=== PATIENT | female | born 1990 | race Caucasian/White ===

== ENCOUNTER 2022-01-27 14:07 | Emergency (ER) | payer BC, OTHER ==
[~2022-01-27] VITALS: Ht 160 cm; Wt 72.7 kg
[~2022-01-27 14:07] MED LIST: AUGM875T27 PO; DEPA250T2 PO; KEPP1000 PO; KEPP500T4 PO; NICO21DI3 EXT; SERT-141 PO; TOPA100T PO
[2022-01-27 14:08] VITALS: BP 103/68
[2022-01-27 16:13] LABS: GC DNA AMPLIFICATION POSITIVE (NEGATIVE)
[2022-01-27] MEDS ORDERED: cefTRIAXone 500MG VIAL (J0696 PER 250MG) IM ONE (16:40)
[2022-01-27] MEDS ORDERED: LIDOCAINE 1% SDV 5ML VIAL DILUENT ONE (16:40)
== END 2022-01-27 17:10 | disposition home or self-care (01) ==
LOC: M ED 14:07
DX: A54.02 Gonococcal vulvovaginitis, unspecified (principal); Z79.899 Other long term (current) drug therapy
CPT/HCPCS: 87661; 87810; 87850; 96372; 99282; J0696

== ENCOUNTER 2022-02-11 18:02 | Emergency (ER) | payer OTHER ==
[~2022-02-11] VITALS: Ht 160 cm; Wt 74.0 kg
[2022-02-11] MEDS ORDERED: SERT150C (18:36)
[2022-02-11] MEDS ORDERED: OXCA300T14 (18:36)
[2022-02-11] MEDS ORDERED: CLOB20TA13 (18:36)
[2022-02-11] MEDS ORDERED: DIFL150T PO (19:36)
[2022-02-11] MEDS ORDERED: BACT800T5 PO (19:36)
[2022-02-11 19:47] VITALS: BP 119/56
== END 2022-02-11 19:48 | disposition home or self-care (01) ==
LOC: M ED 18:02
DX: S50.861A Insect bite (nonvenomous) of right forearm, initial encounter (principal); W57.XXXA Bitten or stung by nonvenomous insect and other nonvenomous arthropods, initial encounter; Y92.89 Other specified places as the place of occurrence of the external cause; B37.3 Candidiasis of vulva and vagina; F33.9 Major depressive disorder, recurrent, unspecified; Z79.899 Other long term (current) drug therapy; F17.200 Nicotine dependence, unspecified, uncomplicated

== ENCOUNTER 2022-03-21 23:38 | Emergency (ER) | payer OTHER ==
[~2022-03-21] VITALS: Ht 160 cm; Wt 54.5 kg
[~2022-03-21 23:38] MED LIST changes: +BACT800T5 PO; +CLOB20TA13; +DIFL150T PO; +OXCA300T14; +SERT150C
[2022-03-21 23:54] VITALS: BP 106/73
== END 2022-03-22 03:16 | disposition left against medical advice (07) ==
LOC: M ED 23:38 → EDBD 23:38 → M ED 03-22 03:16
DX: Z53.29 Procedure and treatment not carried out because of patient's decision for other reasons (principal)

== ENCOUNTER 2022-04-02 11:17 | Emergency (ER) | payer OTHER ==
[~2022-04-02] VITALS: Ht 160 cm; Wt 69.0 kg
[2022-04-02] MEDS ORDERED: OXcarbazepine 300 MG TAB PO STA ×2 (12:01→16:31)
[2022-04-02] MEDS ORDERED: MIDAZOLAM INJ 2MG/2ML VIAL (J2250 PER 1MG) As Ordered ONE (12:50)
[2022-04-02] MEDS ORDERED: MIDAZOLAM INJ 2MG/2ML VIAL (J2250 PER 1MG) IV STA (12:55)
[2022-04-02 16:41] VITALS: BP 116/56
[2022-04-02] MEDS ORDERED: OXcarbazepine 150 MG TAB PO STA (16:49)
[2022-04-08 14:08] LABS: CLOBAZAM 14 ng/mL (30-300); DESMETHYLCLOBAZAM 8667 ng/mL (300-3000)
== END 2022-04-02 16:50 | disposition home or self-care (01) ==
LOC: M ED 11:17 → EDBD 11:17 → M ED 16:50
DX: G40.909 Epilepsy, unspecified, not intractable, without status epilepticus (principal); S00.81XA Abrasion of other part of head, initial encounter; X58.XXXA Exposure to other specified factors, initial encounter; F31.9 Bipolar disorder, unspecified; F17.200 Nicotine dependence, unspecified, uncomplicated; Z79.899 Other long term (current) drug therapy; Z98.890 Other specified postprocedural states
CPT/HCPCS: 70450; 80047; 80183; 84702; 96374; 99285; G0480; J2250

== ENCOUNTER 2022-05-02 10:04 | Observation (INO) | payer OTHER ==
[2022-05-02 12:30] LABS: VENOUS BASE EXCESS -4.5 (-2.0-2.0); VENOUS HCO3 21.7 MEQ/L (23.0-27.0); VENOUS O2 SATURATION 80.3 % (60.0-80.0); VENOUS PARTIAL PRESSURE O2 47.1 mmHg (30.0-50.0); VENOUS PH 7.311 UNITS (7.330-7.430); VENOUS STANDARD HCO3 20.4 MEQ/L; VENOUS TOTAL CO2 23.1 MEQ/L (24.0-28.0)
[2022-05-02 12:39] LABS: BASO % 0.5 % (0.0-1.0); EOS # 0.1 10^3/uL (0.0-0.5); EOS % 1.4 % (0.0-3.0); HEMATOCRIT 39.8 % (36.0-47.0); HEMOGLOBIN 12.8 g/dl (12.0-15.5); LYMPH # 1.6 10^3/uL (1.5-5.0); LYMPH % 26.7 % (24.0-44.0); MEAN CORPUSCULAR HEMOGLOBIN 29.4 pg (27.0-33.0); MEAN CORPUSCULAR HGB CONC 32.2 g/dl (32.0-36.5); MEAN CORPUSCULAR VOLUME 91.3 fl (80.0-96.0); MONO # 0.4 10^3/uL (0.0-0.8); MONO % 6.9 % (2.0-8.0); NEUTROPHILS # 3.7 10^3/uL (1.5-8.5); NEUTROPHILS % 64.3 % (36.0-66.0); PLATELET COUNT, AUTOMATED 228 10^3/uL (150-450); RED BLOOD COUNT 4.36 10^6/uL (4.00-5.40); WHITE BLOOD COUNT 5.8 10^3/uL (4.0-10.0)
[2022-05-02 12:57] LABS: OSMOLALITY SERUM 286 MOSM/KG (275-295)
[2022-05-02] MEDS ORDERED: LIDOCAINE 2% 5ML JELLY UROJET TOP ONE (13:15)
[2022-05-02 13:25] LABS: ALT/SGPT 19 U/L (12-78); BILIRUBIN,DIRECT 0.2 MG/DL (0.0-0.2); BILIRUBIN,TOTAL 0.4 MG/DL (0.2-1.0); BLOOD UREA NITROGEN 10 MG/DL (7-18); CALCIUM LEVEL 9.2 MG/DL (8.5-10.1); CARBON DIOXIDE LEVEL 25 MEQ/L (21-32); CHLORIDE LEVEL 104 MEQ/L (98-107); CREATININE FOR GFR 0.48 MG/DL (0.55-1.30); GLOMERULAR FILTRATION RATE > 60.0 (>60); GLUCOSE, FASTING 82 MG/DL (70-100); SALICYLATE LEVEL 2.8 MG/DL (5.0-30.0); SODIUM LEVEL 135 MEQ/L (136-145); TOTAL PROTEIN 7.3 GM/DL (6.4-8.2)
[2022-05-02 13:26] LABS: ACETAMINOPHEN LEVEL < 2.0 UG/ML (10.0-30.0); ETHYL ALCOHOL (ETHANOL) < 0.003 % (0.000-0.010)
[2022-05-02 14:10] LABS: AMPHETAMINES LEVEL URINE POSITIVE (NEGATIVE); BARBITURATES URINE NEGATIVE (NEGATIVE); BENZODIAZEPINES URINE POSITIVE (NEGATIVE); CANNABINOIDS URINE POSITIVE (NEGATIVE); COCAINE METABOLITE URINE NEGATIVE (NEGATIVE); METHADONE URINE NEGATIVE (NEGATIVE); OPIATES URINE NEGATIVE (NEGATIVE); PHENCYCLIDINE URINE NEGATIVE (NEGATIVE)
[2022-05-02 14:52] LABS: RSV AMPLIFICATION NEGATIVE (NEGATIVE)
[2022-05-02] MEDS ORDERED: ACETAMINOPHEN TAB 650MG DOSE (2X325MG) PO PRN (19:10)
[2022-05-02 19:31] VITALS: BP 122/71
[2022-05-02] MEDS ORDERED: NS 1,000 ML IV SCH (20:05)
[2022-05-02] MEDS ORDERED: OXcarbazepine 300 MG TAB PO SCH (21:00)
[2022-05-02] MEDS ORDERED: CLOB20TA13 PO (21:17)
[2022-05-02] MEDS ORDERED: OXCA300T14 PO (21:17)
[2022-05-02] MEDS ORDERED: ZOLO100T PO (21:17)
[2022-05-02] MEDS ORDERED: HOME MED LIST COMPLETE! XX SCH (21:20)
[2022-05-03] MEDS ORDERED: ENOXAPARIN 40MG/0.4ML SYRINGE (J1650 PER 10MG) SC SCH (09:00)
[2022-05-03] MEDS ORDERED: SERTRALINE HCL 50 MG TAB PO SCH (09:00)
[2022-05-03] MEDS ORDERED: ENOXAPARIN 30MG/0.3ML SYRINGE (J1650 PER 10MG) SC SCH (09:00)
== END 2022-05-02 22:25 | disposition left against medical advice (07) ==
LOC: M ED 10:04 → M ED INP 10:05 → CANRESERV 22:10 → ENRESERV 22:10 → CANRESERV 23:22 → ENRESERV 23:22
PROVIDERS: ADMIT Internal Medicine; ATTEND Internal Medicine
DX: G93.40 Encephalopathy, unspecified (principal); R53.83 Other fatigue; F19.10 Other psychoactive substance abuse, uncomplicated; G40.909 Epilepsy, unspecified, not intractable, without status epilepticus; B19.20 Unspecified viral hepatitis C without hepatic coma; F41.9 Anxiety disorder, unspecified; F32.A Depression, unspecified; Z91.14 Patient's other noncompliance with medication regimen; S00.81XA Abrasion of other part of head, initial encounter; W01.198A Fall on same level from slipping, tripping and stumbling with subsequent striking against other object, initial encounter; Y92.59 Other trade areas as the place of occurrence of the external cause; Z79.899 Other long term (current) drug therapy; F17.200 Nicotine dependence, unspecified, uncomplicated; Z98.890 Other specified postprocedural states

== ENCOUNTER 2022-07-21 09:17 | Emergency (ER) | payer OTHER ==
[~2022-07-21] VITALS: Ht 165.1 cm; Wt 68.0 kg
[~2022-07-21 09:17] MED LIST changes: +CLOB20TA13 PO; +OXCA300T14 PO; +ZOLO100T PO
[2022-07-21] MEDS ORDERED: NS 1,000 ML IV SCH (09:25)
[2022-07-21 09:49] LABS: BASO % 0.5 % (0.0-1.0); EOS % 0.4 % (0.0-3.0); HEMATOCRIT 40.2 % (36.0-47.0); LYMPH # 1.9 10^3/uL (1.5-5.0); LYMPH % 24.4 % (24.0-44.0); MEAN CORPUSCULAR HEMOGLOBIN 29.1 pg (27.0-33.0); MEAN CORPUSCULAR HGB CONC 32.3 g/dl (32.0-36.5); MEAN CORPUSCULAR VOLUME 89.9 fl (80.0-96.0); MONO # 0.4 10^3/uL (0.0-0.8); MONO % 4.5 % (2.0-8.0); NEUTROPHILS # 5.4 10^3/uL (1.5-8.5); NEUTROPHILS % 69.8 % (36.0-66.0); PLATELET COUNT, AUTOMATED 234 10^3/uL (150-450); RED BLOOD COUNT 4.47 10^6/uL (4.00-5.40); WHITE BLOOD COUNT 7.7 10^3/uL (4.0-10.0)
[2022-07-21 10:14] LABS: ALBUMIN 4.3 G/DL (3.2-5.2); ALT/SGPT 19 U/L (7.0-40); BILIRUBIN,DIRECT < 0.1 MG/DL (<0.4); BILIRUBIN,TOTAL 0.3 MG/DL (0.3-1.2); BLOOD UREA NITROGEN 9 MG/DL (9-23); CALCIUM LEVEL 9.2 MG/DL (8.5-10.1); CARBON DIOXIDE LEVEL 24 MMOL/L (20-31); CHLORIDE LEVEL 105 MMOL/L (98-107); CPK CREATINE PHOSPHOKINASE 204 U/L (34-145); CREATININE FOR GFR 0.58 MG/DL (0.55-1.30); ETHYL ALCOHOL (ETHANOL) 0.003 % (0.000-0.010); GLOMERULAR FILTRATION RATE > 60.0 (>60); GLUCOSE, FASTING 79 MG/DL (60-100); POTASSIUM SERUM 3.5 MMOL/L (3.5-5.1); SODIUM LEVEL 141 MMOL/L (136-145)
[2022-07-21] MEDS ORDERED: OXcarbazepine 300 MG TAB PO STA (11:35)
[2022-07-21 12:20] LABS: HCG, SERUM QUALITATIVE NEGATIVE (NEGATIVE)
[2022-07-21 14:45] VITALS: BP 125/77
== END 2022-07-21 16:27 | disposition home or self-care (01) ==
LOC: EDBD 09:17 → M ED 09:17
DX: G40.909 Epilepsy, unspecified, not intractable, without status epilepticus (principal); F17.200 Nicotine dependence, unspecified, uncomplicated; I45.10 Unspecified right bundle-branch block; Z79.899 Other long term (current) drug therapy

== ENCOUNTER 2022-09-07 22:35 | Inpatient (IN) | payer OTHER ==
[~2022-09-07] VITALS: Ht 160 cm; Wt 76.2 kg
[2022-09-07] MEDS ORDERED: NALOXONE 2MG/2ML SYRINGE As Ordered ONE ×2 (22:41→22:50)
[2022-09-07] MEDS ORDERED: NALOXONE 2MG/2ML SYRINGE IM STA (22:50)
[2022-09-07 22:58] LABS: BASO % 0.2 % (0.0-1.0); EOS % 0.1 % (0.0-3.0); HEMATOCRIT 39.6 % (36.0-47.0); HEMOGLOBIN 12.8 g/dl (12.0-15.5); LYMPH # 1.5 10^3/uL (1.5-5.0); LYMPH % 11.5 % (24.0-44.0); MEAN CORPUSCULAR HEMOGLOBIN 29.4 pg (27.0-33.0); MEAN CORPUSCULAR HGB CONC 32.3 g/dl (32.0-36.5); MONO # 0.7 10^3/uL (0.0-0.8); NEUTROPHILS # 10.9 10^3/uL (1.5-8.5); NEUTROPHILS % 82.7 % (36.0-66.0); PLATELET COUNT, AUTOMATED 231 10^3/uL (150-450); RED BLOOD COUNT 4.35 10^6/uL (4.00-5.40); WHITE BLOOD COUNT 13.1 10^3/uL (4.0-10.0)
[2022-09-08 00:17] LABS: ETHYL ALCOHOL (ETHANOL) 0.003 % (0.000-0.010)
[2022-09-08 00:18] LABS: ACETAMINOPHEN LEVEL < 2.0 UG/ML (10.0-20.0); BILIRUBIN,DIRECT 0.2 MG/DL (<0.4); CPK CREATINE PHOSPHOKINASE 188 U/L (34-145)
[2022-09-08 00:19] LABS: ALBUMIN 3.8 G/DL (3.2-5.2); ALKALINE PHOSPHATASE 100 U/L (46-116); ALT/SGPT 19 U/L (7.0-40); AST/SGOT 22 U/L (<34); BILIRUBIN,TOTAL 0.5 MG/DL (0.3-1.2); BLOOD UREA NITROGEN 10 MG/DL (9-23); CALCIUM LEVEL 8.4 MG/DL (8.5-10.1); CARBON DIOXIDE LEVEL 27 MMOL/L (20-31); CHLORIDE LEVEL 101 MMOL/L (98-107); CREATININE FOR GFR 0.64 MG/DL (0.55-1.30); GLOMERULAR FILTRATION RATE > 60.0 (>60); GLUCOSE, FASTING 97 MG/DL (60-100); POTASSIUM SERUM 3.6 MMOL/L (3.5-5.1); SALICYLATE LEVEL < 3.0 MG/DL (<30); SODIUM LEVEL 135 MMOL/L (136-145); TOTAL PROTEIN 6.6 G/DL (5.7-8.2)
[2022-09-08 00:21] LABS: THYROID STIMULATING HORMONE 0.301 uIU/ML (0.55-4.78)
[2022-09-08 00:24] LABS: HCG, SERUM QUALITATIVE NEGATIVE (NEGATIVE)
[2022-09-08] MEDS ORDERED: ISOVUE-370 76% 100ML VIAL As Ordered ONE (12:39)
[2022-09-08] MEDS ORDERED: PIPERACILLIN/TAZOBACTAM SOD 3.375 GM in D5W MINI-BAG PLUS 50 ML IV ONE (14:20)
[2022-09-08] MEDS ORDERED: CLON2TAB7 PO (15:21)
[2022-09-08] MEDS ORDERED: MELA10TA2 PO (15:22)
[2022-09-08] MEDS ORDERED: HOME MED LIST COMPLETE! XX SCH (15:25)
[2022-09-08 20:54] VITALS: BP 113/74
[2022-09-08] MEDS ORDERED: RAMELTEON 8 MG TAB (ROZEREM) PO PRN (21:45)
[2022-09-08] MEDS ORDERED: ACETAMINOPHEN TAB 650MG DOSE (2X325MG) PO PRN (21:45)
[2022-09-08] MEDS ORDERED: NICOTINE 14 MG/24 HR TRANSDERMAL TD PRN (21:45)
[2022-09-08] MEDS ORDERED: CEPACOL LOZENGE PO PRN (21:45)
[2022-09-08] MEDS: PIPERACILLIN/TAZOBACTAM SOD 3.375 GM in D5W MINI-BAG PLUS 50 ML IV SCH (22:43)
[2022-09-08] MEDS: clonazePAM 1 MG TAB PO SCH (22:43)
[2022-09-08] MEDS: OXcarbazepine 300 MG TAB PO SCH (22:50)
[2022-09-08] MEDS ORDERED: SERTRALINE HCL 50 MG TAB PO ONE (23:00)
[2022-09-08] MEDS ORDERED: ONDANSETRON 4MG 2ML VIAL IV PRN (23:35)
[2022-09-09] VITALS (7 sets, daily range): BP systolic 97–109; BP diastolic 52–70; O2SAT 93–95
[2022-09-09 00:37] LABS: BARBITURATES URINE NEGATIVE (NEGATIVE); COCAINE METABOLITE URINE NEGATIVE (NEGATIVE); METHADONE URINE NEGATIVE (NEGATIVE); PHENCYCLIDINE URINE NEGATIVE (NEGATIVE)
[2022-09-09 00:39] LABS: AMPHETAMINES LEVEL URINE POSITIVE (NEGATIVE); BENZODIAZEPINES URINE POSITIVE (NEGATIVE); CANNABINOIDS URINE POSITIVE (NEGATIVE); OPIATES URINE POSITIVE (NEGATIVE)
[2022-09-09] MEDS ORDERED: NS 1,000 ML IV SCH (01:10)
[2022-09-09 02:38] LABS: GC DNA AMPLIFICATION POSITIVE (NEGATIVE)
[2022-09-09] MEDS: PIPERACILLIN/TAZOBACTAM SOD 3.375 GM in D5W MINI-BAG PLUS 50 ML IV SCH ×3 (03:07→13:55)
[2022-09-09 06:24] LABS: BASO % 0.3 % (0.0-1.0); EOS # 0.1 10^3/uL (0.0-0.5); EOS % 0.6 % (0.0-3.0); HEMATOCRIT 37.4 % (36.0-47.0); LYMPH # 1.7 10^3/uL (1.5-5.0); LYMPH % 17.3 % (24.0-44.0); MEAN CORPUSCULAR HEMOGLOBIN 29.5 pg (27.0-33.0); MEAN CORPUSCULAR HGB CONC 32.1 g/dl (32.0-36.5); MEAN CORPUSCULAR VOLUME 91.9 fl (80.0-96.0); MONO # 0.6 10^3/uL (0.0-0.8); MONO % 6.4 % (2.0-8.0); NEUTROPHILS # 7.4 10^3/uL (1.5-8.5); NEUTROPHILS % 75.1 % (36.0-66.0); PLATELET COUNT, AUTOMATED 207 10^3/uL (150-450); RED BLOOD COUNT 4.07 10^6/uL (4.00-5.40); WHITE BLOOD COUNT 9.8 10^3/uL (4.0-10.0)
[2022-09-09 06:56] LABS: BLOOD UREA NITROGEN 6 MG/DL (9-23); CALCIUM LEVEL 8.2 MG/DL (8.5-10.1); CARBON DIOXIDE LEVEL 27 MMOL/L (20-31); CHLORIDE LEVEL 102 MMOL/L (98-107); CREATININE FOR GFR 0.45 MG/DL (0.55-1.30); GLOMERULAR FILTRATION RATE > 60.0 (>60); GLUCOSE, FASTING 86 MG/DL (60-100); POTASSIUM SERUM 3.7 MMOL/L (3.5-5.1); SODIUM LEVEL 136 MMOL/L (136-145)
[2022-09-09] MEDS ORDERED: LACTOBACILLUS ACIDOPHILUS CAP (BACID) PO SCH (09:00)
[2022-09-09] MEDS: clonazePAM 1 MG TAB PO SCH (10:20)
[2022-09-09] MEDS: OXcarbazepine 300 MG TAB PO SCH (10:20)
[2022-09-09] MEDS ORDERED: AMOX875T2 PO (10:55)
[2022-09-09] MEDS ORDERED: DOXY-444 PO (10:59)
[2022-09-09 11:50] LABS: HIV 1&2 SCREEN CENTAUR NEGATIVE (NEGATIVE)
[2022-09-09] MEDS ORDERED: cefTRIAXone 500MG VIAL IM ONE ×2 (12:00→13:00)
[2022-09-09] MEDS ORDERED: SERTRALINE HCL 50 MG TAB PO SCH (13:00)
[2022-09-09] MEDS ORDERED: LIDOCAINE 1% SDV 5ML VIAL DILUENT ONE (13:00)
== END 2022-09-09 19:37 | disposition home or self-care (01) | DRG 816 ==
LOC: M ED 22:35 → M ED INP 09-08 16:01 → ENRESERV 09-08 16:29 → M MSPAV 09-08 20:54
PROVIDERS: ADMIT Internal Medicine Nephrology; ATTEND Internal Medicine Nephrology
DX: T40.1X1A Poisoning by heroin, accidental (unintentional), initial encounter (principal); J69.0 Pneumonitis due to inhalation of food and vomit; G93.41 Metabolic encephalopathy; A54.9 Gonococcal infection, unspecified; G40.909 Epilepsy, unspecified, not intractable, without status epilepticus; G43.909 Migraine, unspecified, not intractable, without status migrainosus; F32.A Depression, unspecified; F41.9 Anxiety disorder, unspecified; F12.10 Cannabis abuse, uncomplicated; F15.10 Other stimulant abuse, uncomplicated; F17.200 Nicotine dependence, unspecified, uncomplicated; R09.02 Hypoxemia; K44.9 Diaphragmatic hernia without obstruction or gangrene; K22.89 Other specified disease of esophagus; Z59.01 Sheltered homelessness; Z62.810 Personal history of physical and sexual abuse in childhood; Z79.899 Other long term (current) drug therapy; Z87.820 Personal history of traumatic brain injury

== ENCOUNTER 2022-12-29 15:39 | Observation (INO) | payer OTHER ==
[~2022-12-29] VITALS: Ht 160 cm; Wt 74.4 kg
[~2022-12-29 15:39] MED LIST changes: +AMOX875T2 PO; +CLON2TAB7 PO; +DOXY-444 PO; +MELA10TA2 PO
[2022-12-29 16:24] LABS: BASO % 0.2 % (0.0-1.0); EOS % 0.5 % (0.0-3.0); HEMATOCRIT 38.3 % (36.0-47.0); HEMOGLOBIN 12.3 g/dl (12.0-15.5); LYMPH # 2.1 10^3/uL (1.5-5.0); LYMPH % 24.7 % (24.0-44.0); MEAN CORPUSCULAR HEMOGLOBIN 29.8 pg (27.0-33.0); MEAN CORPUSCULAR HGB CONC 32.1 g/dl (32.0-36.5); MEAN CORPUSCULAR VOLUME 92.7 fl (80.0-96.0); MONO # 0.6 10^3/uL (0.0-0.8); MONO % 7.4 % (2.0-8.0); NEUTROPHILS # 5.6 10^3/uL (1.5-8.5); NEUTROPHILS % 66.8 % (36.0-66.0); PLATELET COUNT, AUTOMATED 244 10^3/uL (150-450); RED BLOOD COUNT 4.13 10^6/uL (4.00-5.40); WHITE BLOOD COUNT 8.4 10^3/uL (4.0-10.0)
[2022-12-29 16:38] LABS: ETHYL ALCOHOL (ETHANOL) < 0.003 % (0.000-0.010)
[2022-12-29 16:39] LABS: BLOOD UREA NITROGEN 15 MG/DL (9-23); CALCIUM LEVEL 9.4 MG/DL (8.5-10.1); CARBON DIOXIDE LEVEL 24 MMOL/L (20-31); CHLORIDE LEVEL 105 MMOL/L (98-107); CREATININE FOR GFR 0.54 MG/DL (0.55-1.30); GLOMERULAR FILTRATION RATE > 60.0 (>60); GLUCOSE, FASTING 88 MG/DL (60-100); POTASSIUM SERUM 3.6 MMOL/L (3.5-5.1); SODIUM LEVEL 138 MMOL/L (136-145)
[2022-12-29 16:43] LABS: THYROID STIMULATING HORMONE 2.954 uIU/ML (0.55-4.78)
[2022-12-29 17:11] LABS: RSV AMPLIFICATION NEGATIVE (NEGATIVE)
[2022-12-29 18:44] LABS: METHADONE URINE NEGATIVE (NEGATIVE); OPIATES URINE NEGATIVE (NEGATIVE); PHENCYCLIDINE URINE NEGATIVE (NEGATIVE)
[2022-12-29 18:45] LABS: BARBITURATES URINE NEGATIVE (NEGATIVE)
[2022-12-29 18:47] LABS: AMPHETAMINES LEVEL URINE POSITIVE (NEGATIVE); BENZODIAZEPINES URINE POSITIVE (NEGATIVE); CANNABINOIDS URINE POSITIVE (NEGATIVE); COCAINE METABOLITE URINE POSITIVE (NEGATIVE)
[2022-12-29] MEDS ORDERED: NS 1,000 ML IV ONE (20:30)
[2022-12-29] MEDS ORDERED: LORazepam 2 MG/ML 1ML VIAL IV STA ×2 (21:00→21:41)
[2022-12-29] MEDS ORDERED: LORazepam 2 MG/ML 1ML VIAL As Ordered ONE (21:03)
[2022-12-29] MEDS ORDERED: PHENYTOIN INJ 250MG/5ML VIAL IV ONE (21:35)
[2022-12-29] MEDS ORDERED: PHENYTOIN 100MG/2ML VIAL IV ONE (21:40)
[2022-12-29] MEDS ORDERED: HALOPERIDOL 5MG/ML 1ML VIAL IM ONE (21:45)
[2022-12-29] MEDS ORDERED: diphenhydrAMINE 50MG/ML VIAL IM ONE (21:45)
[2022-12-29 22:08] LABS: BASO % 0.3 % (0.0-1.0); EOS % 0.3 % (0.0-3.0); HEMATOCRIT 35.5 % (36.0-47.0); HEMOGLOBIN 11.6 g/dl (12.0-15.5); LYMPH # 1.9 10^3/uL (1.5-5.0); LYMPH % 15.7 % (24.0-44.0); MEAN CORPUSCULAR HEMOGLOBIN 29.9 pg (27.0-33.0); MEAN CORPUSCULAR HGB CONC 32.7 g/dl (32.0-36.5); MEAN CORPUSCULAR VOLUME 91.5 fl (80.0-96.0); MONO % 8.4 % (2.0-8.0); NEUTROPHILS % 74.9 % (36.0-66.0); PLATELET COUNT, AUTOMATED 244 10^3/uL (150-450); RED BLOOD COUNT 3.88 10^6/uL (4.00-5.40)
[2022-12-29 22:31] LABS: ETHYL ALCOHOL (ETHANOL) < 0.003 % (0.000-0.010)
[2022-12-29 22:33] LABS: SALICYLATE LEVEL < 3.0 MG/DL (<30)
[2022-12-29 22:34] LABS: ACETAMINOPHEN LEVEL < 2.0 UG/ML (10.0-20.0); ALBUMIN 3.9 G/DL (3.2-5.2); ALKALINE PHOSPHATASE 96 U/L (46-116); ALT/SGPT 32 U/L (7.0-40); AST/SGOT 39 U/L (<34); BILIRUBIN,DIRECT 0.1 MG/DL (<0.4); BILIRUBIN,TOTAL 0.5 MG/DL (0.3-1.2); BLOOD UREA NITROGEN 13 MG/DL (9-23); CALCIUM LEVEL 8.7 MG/DL (8.5-10.1); CARBON DIOXIDE LEVEL 21 MMOL/L (20-31); CHLORIDE LEVEL 106 MMOL/L (98-107); CREATININE FOR GFR 0.49 MG/DL (0.55-1.30); GLOMERULAR FILTRATION RATE > 60.0 (>60); GLUCOSE, FASTING 92 MG/DL (60-100); POTASSIUM SERUM 3.6 MMOL/L (3.5-5.1); SODIUM LEVEL 140 MMOL/L (136-145); TOTAL PROTEIN 6.9 G/DL (5.7-8.2)
[2022-12-29 22:36] LABS: OSMOLALITY SERUM 289 MOSM/KG (275-295); THYROID STIMULATING HORMONE 2.628 uIU/ML (0.55-4.78)
[2022-12-30] MEDS ORDERED: HOME MED LIST COMPLETE! XX SCH (00:10)
[2022-12-30] MEDS ORDERED: NICOTINE 21MG/24HR 1 EA TRANSDERMAL TD ONE (02:00)
[2022-12-30 02:38] VITALS: BP 101/70
[2022-12-30] MEDS ORDERED: NS 500 ML IV ONE (03:10)
[2022-12-30] MEDS ORDERED: NS 1,000 ML IV SCH (03:10)
[2022-12-30 06:00] VITALS: BP 110/70
[2022-12-30 09:47] LABS: BLOOD UREA NITROGEN 8 MG/DL (9-23); CARBON DIOXIDE LEVEL 24 MMOL/L (20-31); CHLORIDE LEVEL 110 MMOL/L (98-107); CREATININE FOR GFR 0.43 MG/DL (0.55-1.30); GLOMERULAR FILTRATION RATE > 60.0 (>60); GLUCOSE, FASTING 67 MG/DL (60-100); MAGNESIUM LEVEL 1.9 MG/DL (1.8-2.4); POTASSIUM SERUM 3.7 MMOL/L (3.5-5.1); SODIUM LEVEL 140 MMOL/L (136-145)
[2022-12-30] MEDS ORDERED: DILA100C PO (12:11)
[2022-12-30] MEDS: OXcarbazepine 300 MG TAB PO SCH ×2 (13:02→21:10)
[2022-12-30] MEDS: SERTRALINE HCL 50 MG TAB PO SCH (13:02)
[2022-12-30] MEDS: PHENYTOIN ER 100 MG CAP PO SCH ×3 (13:02→21:10)
[2022-12-30] MEDS ORDERED: LORazepam 2 MG/ML 1ML VIAL IV PRN (13:35)
[2022-12-30] MEDS ORDERED: HALOPERIDOL 5MG/ML 1ML VIAL IV PRN (13:35)
[2022-12-30] MEDS ORDERED: OLANZapine INTRAMUSCULAR 10MG VIAL IM ONE (13:40)
[2022-12-30] MEDS ORDERED: LORazepam 2 MG/ML 1ML VIAL IM PRN (13:40)
[2022-12-30 14:00] VITALS: BP 124/82
[2022-12-30 19:44] VITALS: BP 130/74
[2022-12-31] MEDS ORDERED: PHENAZOPYRIDINE 100 MG TAB PO ONE (03:00)
[2022-12-31] MEDS ORDERED: cefTRIAXone SOD 1 GM in D5W MINI-BAG PLUS 50 ML IV SCH (03:00)
[2022-12-31] MEDS ORDERED: KETOROLAC 30 MG/ML 1ML VIAL IV ONE (04:00)
[2022-12-31 04:18] VITALS: BP 108/68
[2022-12-31 06:00] VITALS: BP 106/69
[2022-12-31 06:43] LABS: BASO % 0.3 % (0.0-1.0); EOS # 0.1 10^3/uL (0.0-0.5); EOS % 0.5 % (0.0-3.0); HEMATOCRIT 34.5 % (36.0-47.0); LYMPH # 2.5 10^3/uL (1.5-5.0); LYMPH % 23.4 % (24.0-44.0); MEAN CORPUSCULAR HEMOGLOBIN 30.1 pg (27.0-33.0); MEAN CORPUSCULAR HGB CONC 31.9 g/dl (32.0-36.5); MEAN CORPUSCULAR VOLUME 94.5 fl (80.0-96.0); MONO # 0.5 10^3/uL (0.0-0.8); MONO % 4.8 % (2.0-8.0); NEUTROPHILS # 7.6 10^3/uL (1.5-8.5); NEUTROPHILS % 70.7 % (36.0-66.0); PLATELET COUNT, AUTOMATED 186 10^3/uL (150-450); RED BLOOD COUNT 3.65 10^6/uL (4.00-5.40); WHITE BLOOD COUNT 10.7 10^3/uL (4.0-10.0)
[2022-12-31 07:17] LABS: BLOOD UREA NITROGEN 8 MG/DL (9-23); CALCIUM LEVEL 8.1 MG/DL (8.5-10.1); CARBON DIOXIDE LEVEL 21 MMOL/L (20-31); CHLORIDE LEVEL 111 MMOL/L (98-107); GLOMERULAR FILTRATION RATE > 60.0 (>60); GLUCOSE, FASTING 85 MG/DL (60-100); POTASSIUM SERUM 3.6 MMOL/L (3.5-5.1); SODIUM LEVEL 142 MMOL/L (136-145)
[2022-12-31] MEDS: SERTRALINE HCL 50 MG TAB PO SCH (09:29)
[2022-12-31] MEDS: OXcarbazepine 300 MG TAB PO SCH (09:29)
[2022-12-31] MEDS: PHENYTOIN ER 100 MG CAP PO SCH (09:29)
[2022-12-31] MEDS ORDERED: CEFD300CAP PO (09:41)
== END 2022-12-31 14:35 | disposition home or self-care (01) ==
LOC: M ED 15:39 → EDBD 15:39 → M ED INP 15:40 → M MSPAV 12-30 02:39
PROVIDERS: ADMIT Internal Medicine; ATTEND Internal Medicine Nephrology
DX: G40.411 Other generalized epilepsy and epileptic syndromes, intractable, with status epilepticus (principal); F12.159 Cannabis abuse with psychotic disorder, unspecified; F15.159 Other stimulant abuse with stimulant-induced psychotic disorder, unspecified; F14.159 Cocaine abuse with cocaine-induced psychotic disorder, unspecified; G92.8 Other toxic encephalopathy; Z91.148 Patient's other noncompliance with medication regimen for other reason; N39.0 Urinary tract infection, site not specified; B96.20 Unspecified Escherichia coli [E. coli] as the cause of diseases classified elsewhere; E87.20 Acidosis, unspecified; G43.909 Migraine, unspecified, not intractable, without status migrainosus; Z62.810 Personal history of physical and sexual abuse in childhood; Z87.820 Personal history of traumatic brain injury; F32.A Depression, unspecified; F41.9 Anxiety disorder, unspecified; Z79.899 Other long term (current) drug therapy; F17.200 Nicotine dependence, unspecified, uncomplicated
CPT/HCPCS: 36415; 70450; 70486; 71045; 72125; 80048; 80076; 80143; 80156; 80185; 80307; 81000; 81015; 82077; 83605; 83735; 83930; 84443; 84702; 85025; 87088; 87186; 87631; 93005; 93041; 94760; 96365; 96366; 96372; 96375; 96376; 99285; J0696; J1165; J1200; J1630; J2060; S0166

== ENCOUNTER 2023-01-04 08:59 | Inpatient (IN) | payer OTHER ==
[2023-01-04] VITALS (19 sets, daily range): BP systolic 115–153; BP diastolic 62–94
[~2023-01-04] VITALS: Ht 160 cm; Wt 77.1 kg
[~2023-01-04 08:59] MED LIST changes: +CEFD300CAP PO; +DILA100C PO
[2023-01-04] MEDS ORDERED: NS 1,000 ML IV ONE (09:10)
[2023-01-04] MEDS ORDERED: LORazepam 2 MG/ML 1ML VIAL IM STA ×2 (09:44→11:02)
[2023-01-04] MEDS ORDERED: OLANZapine INTRAMUSCULAR 10MG VIAL IM ONE (09:45)
[2023-01-04] MEDS ORDERED: LORazepam 2 MG/ML 1ML VIAL As Ordered ONE (09:47)
[2023-01-04] MEDS ORDERED: propofoL 1,000 MG in IV 1 EA IV SCH (10:15)
[2023-01-04] MEDS ORDERED: ROCURONIUM BROMIDE 50MG/5ML VIAL IV ONE (10:15)
[2023-01-04] MEDS ORDERED: ETOMIDATE INJ 20MG/10ML VIAL IV ONE (10:15)
[2023-01-04] MEDS: ROCURONIUM BROMIDE 50MG/5ML VIAL IV SCH ×2 (10:30→10:39)
[2023-01-04] MEDS ORDERED: ETOMIDATE INJ 20MG/10ML VIAL IV STA (10:38)
[2023-01-04] MEDS ORDERED: levETIRAcetam INJection 1,000 MG in D5W 100 ML IV ONE (11:05)
[2023-01-04 11:20] LABS: ABG BASE EXCESS -1.8 (-2.0-2.0); ABG HCO3 23.6 MMOL/L (22.0-26.0); ABG O2 SATURATION 98.7 % (95.0-99.0); ABG PARTIAL PRESSURE CO2 42.9 mmHg (35.0-45.0); ABG PARTIAL PRESSURE O2 134.3 mmHg (75.0-100.0); ABG pH (ARTERIAL) 7.359 UNITS (7.350-7.450)
[2023-01-04 11:27] LABS: BASO % 0.4 % (0.0-1.0); EOS % 0.6 % (0.0-3.0); HEMATOCRIT 36.6 % (36.0-47.0); HEMOGLOBIN 11.7 g/dl (12.0-15.5); LYMPH # 1.3 10^3/uL (1.5-5.0); LYMPH % 24.6 % (24.0-44.0); MEAN CORPUSCULAR HEMOGLOBIN 29.5 pg (27.0-33.0); MEAN CORPUSCULAR VOLUME 92.2 fl (80.0-96.0); MONO # 0.3 10^3/uL (0.0-0.8); MONO % 5.5 % (2.0-8.0); NEUTROPHILS # 3.7 10^3/uL (1.5-8.5); NEUTROPHILS % 68.7 % (36.0-66.0); PLATELET COUNT, AUTOMATED 248 10^3/uL (150-450); RED BLOOD COUNT 3.97 10^6/uL (4.00-5.40); WHITE BLOOD COUNT 5.4 10^3/uL (4.0-10.0)
[2023-01-04 12:00] LABS: ETHYL ALCOHOL (ETHANOL) 0.009 % (0.000-0.010)
[2023-01-04 12:01] LABS: ACETAMINOPHEN LEVEL < 2.0 UG/ML (10.0-20.0); CPK CREATINE PHOSPHOKINASE 329 U/L (34-145); HCG, SERUM QUALITATIVE NEGATIVE (NEGATIVE); SALICYLATE LEVEL < 3.0 MG/DL (<30)
[2023-01-04 12:02] LABS: ALBUMIN 3.9 G/DL (3.2-5.2); ALKALINE PHOSPHATASE 102 U/L (46-116); ALT/SGPT 26 U/L (7.0-40); AST/SGOT 24 U/L (<34); BILIRUBIN,DIRECT < 0.1 MG/DL (<0.4); BILIRUBIN,TOTAL 0.2 MG/DL (0.3-1.2); BLOOD UREA NITROGEN 8 MG/DL (9-23); CALCIUM LEVEL 8.5 MG/DL (8.5-10.1); CARBON DIOXIDE LEVEL 26 MMOL/L (20-31); CHLORIDE LEVEL 108 MMOL/L (98-107); CREATININE FOR GFR 0.44 MG/DL (0.55-1.30); GLOMERULAR FILTRATION RATE > 60.0 (>60); GLUCOSE, FASTING 104 MG/DL (60-100); POTASSIUM SERUM 3.3 MMOL/L (3.5-5.1); SODIUM LEVEL 143 MMOL/L (136-145); TOTAL PROTEIN 6.8 G/DL (5.7-8.2)
[2023-01-04 12:04] LABS: THYROID STIMULATING HORMONE 1.699 uIU/ML (0.55-4.78)
[2023-01-04] MEDS ORDERED: POTASSIUM CHL PWD 20MEQ PACKET PO ONE (12:10)
[2023-01-04 12:12] LABS: RSV AMPLIFICATION NEGATIVE (NEGATIVE)
[2023-01-04 12:23] LABS: BARBITURATES URINE NEGATIVE (NEGATIVE)
[2023-01-04 12:24] LABS: METHADONE URINE NEGATIVE (NEGATIVE); OPIATES URINE NEGATIVE (NEGATIVE); PHENCYCLIDINE URINE NEGATIVE (NEGATIVE)
[2023-01-04 12:25] LABS: AMPHETAMINES LEVEL URINE POSITIVE (NEGATIVE); BENZODIAZEPINES URINE POSITIVE (NEGATIVE); CANNABINOIDS URINE POSITIVE (NEGATIVE); COCAINE METABOLITE URINE POSITIVE (NEGATIVE)
[2023-01-04 12:44] LABS: ABG BASE EXCESS -1.1 (-2.0-2.0); ABG HCO3 23.6 MMOL/L (22.0-26.0); ABG O2 SATURATION 98.8 % (95.0-99.0); ABG PARTIAL PRESSURE CO2 39.5 mmHg (35.0-45.0); ABG PARTIAL PRESSURE O2 132.6 mmHg (75.0-100.0); ABG STANDARD HCO3 23.6 MMOL/L. (22.0-26.0); ABG TOTAL CO2 24.8 MMOL/L (22.0-29.0); ABG pH (ARTERIAL) 7.394 UNITS (7.350-7.450)
[2023-01-04] MEDS: KCL 40MEQ in NS 1000ML 1,000 ML IV SCH ×2 (13:08→22:08)
[2023-01-04] MEDS: IPRATROPIUM 0.5MG/ALBUTEROL 2.5MG INH SOL UD 3ML (DUONEB) NEB SCH ×3 (13:45→19:18)
[2023-01-04] MEDS: PANTOPRAZOLE 40MG VIAL IV SCH (13:58)
[2023-01-04] MEDS: ENOXAPARIN 40MG/0.4ML SYRINGE (J1650 PER 10MG) SC SCH (13:58)
[2023-01-04] MEDS ORDERED: ROCURONIUM BROMIDE 50MG/5ML VIAL ONE (14:49)
[2023-01-04] MEDS: propofoL 1,000 MG in IV 1 EA IV SCH ×2 (15:05→20:26)
[2023-01-04] MEDS ORDERED: PHEN100C PO (15:58)
[2023-01-04] MEDS ORDERED: CEFD300CAP PO (15:58)
[2023-01-04] MEDS ORDERED: PATIENT COMMENT (15:59)
[2023-01-04] MEDS ORDERED: PHENYTOIN 125MG/5ML SUSP ORAL SYRINGE *DRAW UP EXACT DOSE XX SCH (16:00)
[2023-01-04] MEDS ORDERED: HOME MED LIST COMPLETE! XX SCH (16:00)
[2023-01-04] MEDS: PHENYTOIN 100MG/2ML VIAL IV SCH ×2 (16:18→23:57)
[2023-01-04] MEDS: MIDAZOLAM INJ 2MG/2ML VIAL IV PRN ×2 (19:43→20:56)
[2023-01-04] MEDS: CHLORHEXIDINE GLUCONATE 0.12 % 15ML UDC (PERIDEX ORAL RINSE) MT SCH (20:29)
[2023-01-04] MEDS: levETIRAcetam INJection 1,000 MG in D5W 100 ML IV SCH (22:07)
[2023-01-05] VITALS (22 sets, daily range): BP systolic 115–134; BP diastolic 60–87
[2023-01-05] MEDS: propofoL 1,000 MG in IV 1 EA IV SCH ×2 (00:20→05:03)
[2023-01-05] MEDS: MIDAZOLAM INJ 2MG/2ML VIAL IV PRN (03:38)
[2023-01-05 05:20] LABS: HEMATOCRIT 31.9 % (36.0-47.0); HEMOGLOBIN 10.3 g/dl (12.0-15.5); MEAN CORPUSCULAR HEMOGLOBIN 29.9 pg (27.0-33.0); MEAN CORPUSCULAR HGB CONC 32.3 g/dl (32.0-36.5); MEAN CORPUSCULAR VOLUME 92.7 fl (80.0-96.0); PLATELET COUNT, AUTOMATED 201 10^3/uL (150-450); RED BLOOD COUNT 3.44 10^6/uL (4.00-5.40); WHITE BLOOD COUNT 6.8 10^3/uL (4.0-10.0)
[2023-01-05 05:43] LABS: BLOOD UREA NITROGEN < 5 MG/DL (9-23); CALCIUM LEVEL 7.7 MG/DL (8.5-10.1); CARBON DIOXIDE LEVEL 26 MMOL/L (20-31); CHLORIDE LEVEL 112 MMOL/L (98-107); CREATININE FOR GFR 0.49 MG/DL (0.55-1.30); GLOMERULAR FILTRATION RATE > 60.0 (>60); GLUCOSE, FASTING 111 MG/DL (60-100); POTASSIUM SERUM 3.8 MMOL/L (3.5-5.1); SODIUM LEVEL 143 MMOL/L (136-145)
[2023-01-05 06:05] LABS: ABG HCO3 24.4 MMOL/L (22.0-26.0); ABG O2 SATURATION 96.8 % (95.0-99.0); ABG PARTIAL PRESSURE CO2 38.7 mmHg (35.0-45.0); ABG PARTIAL PRESSURE O2 88.8 mmHg (75.0-100.0); ABG STANDARD HCO3 24.5 MMOL/L. (22.0-26.0); ABG TOTAL CO2 25.6 MMOL/L (22.0-29.0); ABG pH (ARTERIAL) 7.417 UNITS (7.350-7.450)
[2023-01-05] MEDS: PHENYTOIN 100MG/2ML VIAL IV SCH ×2 (07:55→16:12)
[2023-01-05] MEDS: KCL 40MEQ in NS 1000ML 1,000 ML IV SCH (07:55)
[2023-01-05] MEDS: CHLORHEXIDINE GLUCONATE 0.12 % 15ML UDC (PERIDEX ORAL RINSE) MT SCH (08:18)
[2023-01-05] MEDS: PANTOPRAZOLE 40MG VIAL IV SCH (08:18)
[2023-01-05] MEDS: ENOXAPARIN 40MG/0.4ML SYRINGE (J1650 PER 10MG) SC SCH (08:19)
[2023-01-05] MEDS: levETIRAcetam INJection 1,000 MG in D5W 100 ML IV SCH (11:30)
[2023-01-05] MEDS: SERTRALINE HCL 50 MG TAB PO SCH (16:11)
[2023-01-05] MEDS: PHENYTOIN ER 100 MG CAP PO SCH (20:42)
[2023-01-05] MEDS: CEFDINIR 300 MG CAP (OMNICEF) PO SCH (20:42)
[2023-01-05] MEDS: OXcarbazepine 300 MG TAB PO SCH (20:42)
[2023-01-06 00:02] VITALS: BP 106/56
[2023-01-06 04:20] VITALS: BP 102/59
[2023-01-06 06:27] LABS: HEMATOCRIT 34.2 % (36.0-47.0); MEAN CORPUSCULAR HEMOGLOBIN 29.9 pg (27.0-33.0); MEAN CORPUSCULAR HGB CONC 32.2 g/dl (32.0-36.5); MEAN CORPUSCULAR VOLUME 92.9 fl (80.0-96.0); PLATELET COUNT, AUTOMATED 216 10^3/uL (150-450); RED BLOOD COUNT 3.68 10^6/uL (4.00-5.40); WHITE BLOOD COUNT 5.7 10^3/uL (4.0-10.0)
[2023-01-06 07:01] LABS: BLOOD UREA NITROGEN < 5 MG/DL (9-23); CALCIUM LEVEL 8.3 MG/DL (8.5-10.1); CARBON DIOXIDE LEVEL 27 MMOL/L (20-31); CHLORIDE LEVEL 109 MMOL/L (98-107); GLOMERULAR FILTRATION RATE > 60.0 (>60); GLUCOSE, FASTING 95 MG/DL (60-100); POTASSIUM SERUM 3.6 MMOL/L (3.5-5.1); SODIUM LEVEL 143 MMOL/L (136-145)
[2023-01-06 07:38] VITALS: BP 110/58
[2023-01-06] MEDS: SERTRALINE HCL 50 MG TAB PO SCH (08:52)
[2023-01-06] MEDS: OXcarbazepine 300 MG TAB PO SCH (08:52)
[2023-01-06] MEDS: PHENYTOIN ER 100 MG CAP PO SCH (08:52)
[2023-01-06] MEDS: CEFDINIR 300 MG CAP (OMNICEF) PO SCH (08:52)
[2023-01-06] MEDS: ENOXAPARIN 40MG/0.4ML SYRINGE (J1650 PER 10MG) SC SCH (08:53)
[2023-01-06] MEDS ORDERED: CEFD300CAP PO (10:16)
== END 2023-01-06 11:10 | disposition home or self-care (01) | DRG 53 ==
LOC: M ED 08:59 → M ED INP 11:41 → M ICU 12:45
PROVIDERS: ADMIT Internal Medicine Pulmonary Disease; ATTEND Student in an Organized Health Care Education/Training Program
PROC: 02HV33Z Insertion of Infusion Device into Superior Vena Cava, Percutaneous Approach (ICD-10-PCS; principal; 2023-01-04)
PROC: 5A1945Z Respiratory Ventilation, 24-96 Consecutive Hours (ICD-10-PCS; 2023-01-04)
DX: G40.901 Epilepsy, unspecified, not intractable, with status epilepticus (principal); E87.6 Hypokalemia; J96.00 Acute respiratory failure, unspecified whether with hypoxia or hypercapnia; T40.5X1A Poisoning by cocaine, accidental (unintentional), initial encounter; T43.591A Poisoning by other antipsychotics and neuroleptics, accidental (unintentional), initial encounter; F19.10 Other psychoactive substance abuse, uncomplicated; F41.9 Anxiety disorder, unspecified; F32.A Depression, unspecified; G92.8 Other toxic encephalopathy; N39.0 Urinary tract infection, site not specified; Z79.899 Other long term (current) drug therapy; Z20.822 Contact with and (suspected) exposure to COVID-19

== ENCOUNTER 2023-01-07 19:15 | Emergency (ER) | payer OTHER ==
[~2023-01-07] VITALS: Ht 152.4 cm; Wt 56.8 kg
[~2023-01-07 19:15] MED LIST changes: +PATIENT COMMENT; +PHEN100C PO
[2023-01-07 20:07] LABS: BASO % 0.3 % (0.0-1.0); EOS # 0.1 10^3/uL (0.0-0.5); EOS % 1.3 % (0.0-3.0); HEMOGLOBIN 11.6 g/dl (12.0-15.5); LYMPH % 30.9 % (24.0-44.0); MEAN CORPUSCULAR HEMOGLOBIN 29.5 pg (27.0-33.0); MEAN CORPUSCULAR HGB CONC 32.2 g/dl (32.0-36.5); MEAN CORPUSCULAR VOLUME 91.6 fl (80.0-96.0); MONO # 0.4 10^3/uL (0.0-0.8); NEUTROPHILS # 3.9 10^3/uL (1.5-8.5); NEUTROPHILS % 61.2 % (36.0-66.0); PLATELET COUNT, AUTOMATED 266 10^3/uL (150-450); RED BLOOD COUNT 3.93 10^6/uL (4.00-5.40); WHITE BLOOD COUNT 6.4 10^3/uL (4.0-10.0)
[2023-01-07 20:33] LABS: HCG, SERUM QUALITATIVE NEGATIVE (NEGATIVE)
[2023-01-07 20:34] LABS: ALBUMIN 3.4 G/DL (3.2-5.2); ALKALINE PHOSPHATASE 91 U/L (46-116); ALT/SGPT 20 U/L (7.0-40); AST/SGOT 28 U/L (<34); BILIRUBIN,DIRECT < 0.1 MG/DL (<0.4); BILIRUBIN,TOTAL < 0.2 MG/DL (0.3-1.2); BLOOD UREA NITROGEN 8 MG/DL (9-23); CALCIUM LEVEL 8.4 MG/DL (8.5-10.1); CARBON DIOXIDE LEVEL 23 MMOL/L (20-31); CHLORIDE LEVEL 108 MMOL/L (98-107); CREATININE FOR GFR 0.57 MG/DL (0.55-1.30); GLOMERULAR FILTRATION RATE > 60.0 (>60); GLUCOSE, FASTING 69 MG/DL (60-100); POTASSIUM SERUM 4.2 MMOL/L (3.5-5.1); SODIUM LEVEL 143 MMOL/L (136-145); TOTAL PROTEIN 6.5 G/DL (5.7-8.2)
[2023-01-07] MEDS ORDERED: NS 1,000 ML IV ONE ×2 (20:40→23:50)
[2023-01-07 20:59] LABS: PROLACTIN 3.52 NG/ML
[2023-01-07] MEDS ORDERED: PHENYTOIN INJ 250MG/5ML VIAL IV ONE (21:05)
[2023-01-07 21:22] LABS: BARBITURATES URINE NEGATIVE (NEGATIVE); COCAINE METABOLITE URINE NEGATIVE (NEGATIVE); METHADONE URINE NEGATIVE (NEGATIVE); OPIATES URINE NEGATIVE (NEGATIVE); PHENCYCLIDINE URINE NEGATIVE (NEGATIVE)
[2023-01-07 21:24] LABS: AMPHETAMINES LEVEL URINE POSITIVE (NEGATIVE); BENZODIAZEPINES URINE POSITIVE (NEGATIVE); CANNABINOIDS URINE POSITIVE (NEGATIVE)
[2023-01-07] MEDS ORDERED: NS IV ONE (21:30)
[2023-01-07] MEDS ORDERED: PHENYTOIN IV ONE (21:30)
[2023-01-07] MEDS ORDERED: LORazepam 2 MG/ML 1ML VIAL IV STA (22:37)
[2023-01-08 00:49] LABS: RSV AMPLIFICATION NEGATIVE (NEGATIVE)
[2023-01-08 01:00] VITALS: BP 121/76
[2023-01-08] MEDS ORDERED: DILA100C PO (01:29)
== END 2023-01-08 01:55 | disposition home or self-care (01) ==
LOC: M ED 19:15
DX: R56.9 Unspecified convulsions (principal); F19.10 Other psychoactive substance abuse, uncomplicated; G43.409 Hemiplegic migraine, not intractable, without status migrainosus; Z79.899 Other long term (current) drug therapy
CPT/HCPCS: 70450; 72125; 80048; 80076; 80183; 80185; 80307; 81001; 82550; 83605; 84146; 84703; 85025; 87086; 87631; 94760; 96365; 96375; 99285; G0480; J1165; J2060

== ENCOUNTER 2024-03-07 06:57 | Inpatient (IN) | payer OTHER ==
[~2024-03-07] VITALS: Ht 160 cm; Wt 88.0 kg
[2024-03-07] VITALS (7 sets, daily range): BP systolic 100–126; BP diastolic 54–76; TEMP 97.6–98.2; O2SAT 94–99
[~2024-03-07 06:57] MED LIST changes: -CLOB20TA13; -CLOB20TA13 PO; +CLOB20TA3; +CLOB20TA3 PO; +DOXY-440 PO; -DOXY-444 PO
[2024-03-07] MEDS ORDERED: LORazepam 2 MG/ML 1ML VIAL As Ordered ONE (07:04)
[2024-03-07] MEDS: LORazepam 2 MG/ML 1ML VIAL IV STA ×3 (07:05→08:35)
[2024-03-07 07:30] LABS: ABG BASE EXCESS -3.9 (-2.0-2.0); ABG HCO3 22.4 MMOL/L (22.0-26.0); ABG O2 SATURATION 43.9 % (95.0-99.0); ABG PARTIAL PRESSURE CO2 45.8 mmHg (35.0-45.0); ABG STANDARD HCO3 20.2 MMOL/L. (22.0-26.0); ABG TOTAL CO2 23.8 MMOL/L (22.0-29.0); ABG pH (ARTERIAL) 7.308 UNITS (7.350-7.450)
[2024-03-07 07:32] LABS: ABG PARTIAL PRESSURE O2 26.9 mmHg (75.0-100.0)
[2024-03-07 07:53] LABS: BASO % 0.4 % (0.0-1.0); EOS % 0.4 % (0.0-3.0); HEMOGLOBIN 12.5 g/dl (12.0-15.5); LYMPH # 2.5 10^3/uL (1.5-5.0); LYMPH % 26.3 % (24.0-44.0); MEAN CORPUSCULAR HEMOGLOBIN 29.6 pg (27.0-33.0); MEAN CORPUSCULAR HGB CONC 32.9 g/dl (32.0-36.5); MEAN CORPUSCULAR VOLUME 89.8 fl (80.0-96.0); MONO # 0.6 10^3/uL (0.0-0.8); MONO % 6.7 % (2.0-8.0); NEUTROPHILS # 6.2 10^3/uL (1.5-8.5); NEUTROPHILS % 65.9 % (36.0-66.0); PLATELET COUNT, AUTOMATED 263 10^3/uL (150-450); RED BLOOD COUNT 4.23 10^6/uL (4.00-5.40); WHITE BLOOD COUNT 9.4 10^3/uL (4.0-10.0)
[2024-03-07 08:11] LABS: ETHYL ALCOHOL (ETHANOL) < 0.003 % (0.000-0.010)
[2024-03-07 08:12] LABS: CK-MB VALUE MASS 4.9 NG/ML (<3.6); SALICYLATE LEVEL < 3.0 MG/DL (<30)
[2024-03-07 08:13] LABS: ALBUMIN 3.7 G/DL (3.2-5.2); ALKALINE PHOSPHATASE 139 U/L (46-116); ALT/SGPT 33 U/L (7.0-40); AST/SGOT 33 U/L (<34); BILIRUBIN,DIRECT 0.1 MG/DL (<0.4); BILIRUBIN,TOTAL 0.3 MG/DL (0.3-1.2); BLOOD UREA NITROGEN 7 MG/DL (9-23); CALCIUM LEVEL 8.7 MG/DL (8.5-10.1); CARBON DIOXIDE LEVEL 19 MMOL/L (20-31); CHLORIDE LEVEL 107 MMOL/L (98-107); CREATININE FOR GFR 0.58 MG/DL (0.55-1.30); GLOMERULAR FILTRATION RATE > 60.0 (>60); GLUCOSE, FASTING 105 MG/DL (60-100); PHOSPHORUS LEVEL 5.1 MG/DL (2.5-4.9); POTASSIUM SERUM 3.6 MMOL/L (3.5-5.1); SODIUM LEVEL 141 MMOL/L (136-145); TOTAL PROTEIN 6.8 G/DL (5.7-8.2)
[2024-03-07 08:14] LABS: CPK CREATINE PHOSPHOKINASE 373 U/L (34-145); MB/CK RELATIVE INDEX 1.31 (< OR =4); OSMOLALITY SERUM 287 MOSM/KG (275-295)
[2024-03-07 08:16] LABS: THYROID STIMULATING HORMONE 2.582 uIU/ML (0.55-4.78)
[2024-03-07 08:25] LABS: HCG, SERUM QUALITATIVE NEGATIVE (NEGATIVE)
[2024-03-07] MEDS: NS 1,000 ML IV ONE ×2 (08:29→08:48)
[2024-03-07] MEDS: LORazepam 2 MG/ML 1ML VIAL IM STA ×3 (08:34→08:37)
[2024-03-07] MEDS: levETIRAcetam INJection 4,500 MG in D5W 100 ML IV ONE (08:37)
[2024-03-07 08:42] LABS: ABG BASE EXCESS -4.3 (-2.0-2.0); ABG HCO3 20.2 MMOL/L (22.0-26.0); ABG O2 SATURATION 95.8 % (95.0-99.0); ABG PARTIAL PRESSURE CO2 34.9 mmHg (35.0-45.0); ABG PARTIAL PRESSURE O2 86.3 mmHg (75.0-100.0); ABG STANDARD HCO3 20.9 MMOL/L. (22.0-26.0); ABG TOTAL CO2 21.3 MMOL/L (22.0-29.0)
[2024-03-07 08:48] LABS: BARBITURATES URINE NEGATIVE (NEGATIVE); COCAINE METABOLITE URINE NEGATIVE (NEGATIVE); METHADONE URINE NEGATIVE (NEGATIVE); OPIATES URINE NEGATIVE (NEGATIVE); PHENCYCLIDINE URINE NEGATIVE (NEGATIVE)
[2024-03-07 08:49] LABS: AMPHETAMINES LEVEL URINE POSITIVE (NEGATIVE); BENZODIAZEPINES URINE POSITIVE (NEGATIVE); CANNABINOIDS URINE POSITIVE (NEGATIVE)
[2024-03-07] MEDS ORDERED: ALBU8.5H INH (10:00)
[2024-03-07] MEDS ORDERED: MIDA5SPR (10:00)
[2024-03-07] MEDS ORDERED: HOME MED LIST COMPLETE! XX SCH (10:00)
[2024-03-07] MEDS: FOSPHENYTOIN SODIUM IV ONE (10:17)
[2024-03-07] MEDS: LR 1,000 ML IV SCH (11:30)
[2024-03-07 12:37] LABS: CK-MB VALUE MASS 6.9 NG/ML (<3.6)
[2024-03-07 12:39] LABS: MB/CK RELATIVE INDEX 1.65 (< OR =4)
[2024-03-07] MEDS: OXcarbazepine 300 MG TAB PO ONE (16:11)
[2024-03-07] MEDS ORDERED: PHENYTOIN 100MG/2ML VIAL IV SCH (18:00)
[2024-03-07] MEDS: OXcarbazepine 300 MG TAB PO SCH (20:59)
[2024-03-07] MEDS: HEPARIN SOD (PORCINE) 5000UNITS/ML 1ML VIAL/SYRINGE SC SCH (20:59)
[2024-03-07] MEDS ORDERED: levETIRAcetam INJection 500 MG in D5W MINI-BAG PLUS 100 ML IV SCH (21:00)
[2024-03-07] MEDS ORDERED: OXcarbazepine 300 MG TAB PO SCH (21:00)
[2024-03-08 04:14] VITALS: BP 97/57; TEMP 97.7; O2SAT 93
[2024-03-08 05:45] VITALS: BP 103/64
[2024-03-08 07:02] LABS: HEMATOCRIT 31.8 % (36.0-47.0); HEMOGLOBIN 10.6 g/dl (12.0-15.5); MEAN CORPUSCULAR HEMOGLOBIN 29.6 pg (27.0-33.0); MEAN CORPUSCULAR HGB CONC 33.3 g/dl (32.0-36.5); MEAN CORPUSCULAR VOLUME 88.8 fl (80.0-96.0); PLATELET COUNT, AUTOMATED 193 10^3/uL (150-450); RED BLOOD COUNT 3.58 10^6/uL (4.00-5.40); WHITE BLOOD COUNT 5.2 10^3/uL (4.0-10.0)
[2024-03-08 07:18] LABS: ALBUMIN 2.9 G/DL (3.2-5.2); ALKALINE PHOSPHATASE 110 U/L (46-116); ALT/SGPT 27 U/L (7.0-40); AST/SGOT 32 U/L (<34); BILIRUBIN,TOTAL 0.3 MG/DL (0.3-1.2); BLOOD UREA NITROGEN 7 MG/DL (9-23); CALCIUM LEVEL 7.7 MG/DL (8.5-10.1); CARBON DIOXIDE LEVEL 25 MMOL/L (20-31); CHLORIDE LEVEL 109 MMOL/L (98-107); CREATININE FOR GFR 0.56 MG/DL (0.55-1.30); GLOMERULAR FILTRATION RATE > 60.0 (>60); GLUCOSE, FASTING 78 MG/DL (60-100); MAGNESIUM LEVEL 1.8 MG/DL (1.8-2.4); POTASSIUM SERUM 3.4 MMOL/L (3.5-5.1); SODIUM LEVEL 140 MMOL/L (136-145); TOTAL PROTEIN 5.5 G/DL (5.7-8.2)
[2024-03-08 07:44] VITALS: BP 120/78; TEMP 97.3; O2SAT 97
[2024-03-08] MEDS: SERTRALINE 100 MG TAB PO SCH (09:28)
[2024-03-08 11:10] VITALS: BP 105/57; TEMP 97.9; O2SAT 97
[2024-03-08] MEDS: POTASSIUM CHLORIDE 10MEQ SR TABLET PO ONE (11:49)
[2024-03-08 15:43] VITALS: BP 129/64; TEMP 97.2; O2SAT 96
[2024-03-08 20:31] VITALS: BP 128/70; TEMP 98; O2SAT 96
[2024-03-09 03:15] VITALS: BP 105/68; TEMP 97.3; O2SAT 97
[2024-03-09 05:34] LABS: HEMATOCRIT 33.8 % (36.0-47.0); HEMOGLOBIN 11.4 g/dl (12.0-15.5); MEAN CORPUSCULAR HEMOGLOBIN 29.8 pg (27.0-33.0); MEAN CORPUSCULAR HGB CONC 33.7 g/dl (32.0-36.5); MEAN CORPUSCULAR VOLUME 88.3 fl (80.0-96.0); PLATELET COUNT, AUTOMATED 219 10^3/uL (150-450); RED BLOOD COUNT 3.83 10^6/uL (4.00-5.40); WHITE BLOOD COUNT 5.2 10^3/uL (4.0-10.0)
[2024-03-09 06:13] LABS: ALKALINE PHOSPHATASE 117 U/L (46-116); ALT/SGPT 27 U/L (7.0-40); AST/SGOT 33 U/L (<34); BILIRUBIN,TOTAL 0.2 MG/DL (0.3-1.2); BLOOD UREA NITROGEN 5 MG/DL (9-23); CALCIUM LEVEL 8.5 MG/DL (8.5-10.1); CARBON DIOXIDE LEVEL 25 MMOL/L (20-31); CHLORIDE LEVEL 109 MMOL/L (98-107); CREATININE FOR GFR 0.53 MG/DL (0.55-1.30); GLOMERULAR FILTRATION RATE > 60.0 (>60); GLUCOSE, FASTING 74 MG/DL (60-100); MAGNESIUM LEVEL 1.9 MG/DL (1.8-2.4); POTASSIUM SERUM 3.6 MMOL/L (3.5-5.1); SODIUM LEVEL 141 MMOL/L (136-145); TOTAL PROTEIN 5.8 G/DL (5.7-8.2)
[2024-03-09 07:39] VITALS: BP 110/78; TEMP 97.6; O2SAT 95
== END 2024-03-09 11:16 | disposition home or self-care (01) | DRG 53 ==
LOC: M ED 06:57 → EEVIPCON 08:54 → M ED INP 08:54 → M ICU 10:54 → M PCU 14:54
PROVIDERS: ADMIT Internal Medicine Pulmonary Disease; ATTEND Internal Medicine
DX: G40.901 Epilepsy, unspecified, not intractable, with status epilepticus (principal); F32.A Depression, unspecified; F41.9 Anxiety disorder, unspecified; E87.6 Hypokalemia; Z79.899 Other long term (current) drug therapy; Z11.52 Encounter for screening for COVID-19; R26.89 Other abnormalities of gait and mobility; B34.8 Other viral infections of unspecified site

== ENCOUNTER → 2024-06-12 | Outpatient (CLI) | payer OTHER ==
[~2024-06-12] MED LIST changes: +ALBU8.5H INH; +MIDA5SPR
== END ==
LOC: M RAD 16:18
PROVIDERS: ATTEND Physician Assistant
DX: M79.644 Pain in right finger(s) (principal)

== ENCOUNTER → 2024-06-12 | Emergency (ER) | payer OTHER ==
[~2024-06-12] MED LIST changes: +IBUP-1114 PO; +VITA500C24 PO
== END | disposition left against medical advice (07) ==
LOC: M ED 15:42
DX: Z53.21 Procedure and treatment not carried out due to patient leaving prior to being seen by health care provider (principal)

== ENCOUNTER → 2024-06-12 | Outpatient (CLI) | payer OTHER, MEDICAID ==
[~2024-06-12] MED LIST changes: -IBUP-1114 PO; -VITA500C24 PO
== END ==
LOC: M SOG 07:28
PROVIDERS: ATTEND Physician Assistant
DX: M79.644 Pain in right finger(s) (principal); R93.6 Abnormal findings on diagnostic imaging of limbs

== ENCOUNTER 2024-07-04 07:07 | Day surgery (SDC) | payer OTHER ==
[~2024-07-04] VITALS: Ht 157.5 cm; Wt 100.8 kg
[~2024-07-04 07:07] MED LIST changes: +ACETAMINOPHEN 1000MG 100ML IV BAG As Ordered ONE; +IBUP-1114 PO; +KETOROLAC 60MG 2ML VIAL As Ordered ONE; +LIDOCAINE 2% 100MG/5ML SDV (FOR ANES.) As Ordered ONE; +MIDAZOLAM INJ 2MG/2ML VIAL As Ordered ONE; +ONDANSETRON 4MG 2ML VIAL As Ordered ONE; +VITA500C24 PO; +fentaNYL 100 MCG/2 ML INJECTION As Ordered ONE; +propofoL 200 MG/20 ML VIAL As Ordered ONE
[2024-07-04] MEDS ORDERED: LR 1,000 ML IV SCH (07:55)
[2024-07-04] MEDS: NS 1,000 ML IV SCH (08:39)
[2024-07-04 09:45] VITALS: BP 124/70; TEMP 97; O2SAT 97
== END 2024-07-04 09:49 | disposition home or self-care (01) ==
LOC: M SDC 07:07
PROVIDERS: ATTEND Orthopaedic Surgery Hand Surgery
DX: M79.644 Pain in right finger(s) (principal); E73.9 Lactose intolerance, unspecified; Z87.891 Personal history of nicotine dependence
CPT/HCPCS: 26340; 76000; 81025; J0131; J1100; J1885; J2250; J2405; J3010